=== PATIENT | female | born 1990 | race Native Hawaiian/Other Pacific Islander ===

== ENCOUNTER 2016-07-03 13:26 | Outpatient (CLI) | payer OTHER ==
[2016-07-03 15:58] LABS: PLATELET COUNT 222 K/uL (152-353)
[2016-07-03 18:46] LABS: POTASSIUM 4.5 mmol/L (3.6-5.2); SODIUM 139 mmol/L (136-145)
== END 2016-07-03 20:48 | disposition home or self-care (01) ==
LOC: LAB 13:26
PROVIDERS: Nurse Practitioner Family
DX: Z00.00 Encounter for general adult medical examination without abnormal findings (principal); F41.8 Other specified anxiety disorders; R53.83 Other fatigue; R53.81 Other malaise; M54.89 Other dorsalgia; E78.00 Pure hypercholesterolemia, unspecified
CPT/HCPCS: 80053; 80061; 82306; 83036; 84436; 84443; 85027

== ENCOUNTER 2016-08-27 10:42 | Emergency (ER) | payer OTHER ==
[~2016-08-27] VITALS: Ht 175.3 cm; Wt 108.9 kg
[2016-08-27] MEDS ORDERED: LIPITOR20 MG PO (11:12)
[2016-08-27 12:04] LABS: PLATELET COUNT 238 K/uL (152-353)
[2016-08-27 12:10] LABS: POTASSIUM 3.5 mmol/L (3.6-5.2); SODIUM 135 mmol/L (136-145)
== END 2016-08-27 14:47 | disposition home or self-care (01) ==
LOC: ED 10:42
PROVIDERS: Emergency Medicine
DX: R19.7 Diarrhea, unspecified (principal)
CPT/HCPCS: 36415; 80053; 81000; 81025; 84443; 85027; 87045; 87205; 87328; 87329; 87493; 87798; 87899; 99283

== ENCOUNTER 2017-01-13 13:12 | Emergency (ER) | payer OTHER ==
[~2017-01-13] VITALS: Ht 167.6 cm; Wt 104.3 kg
[~2017-01-13 13:12] MED LIST: LIPITOR20 MG PO
[2017-01-13] MEDS ORDERED: FLONASE AL50 MCG/ACT (13:31)
== END 2017-01-13 16:31 | disposition home or self-care (01) ==
LOC: ED 13:12
DX: M54.32 Sciatica, left side (principal); M54.5 Low back pain
CPT/HCPCS: 96372; 99283; J1885

== ENCOUNTER 2017-10-19 10:12 | Emergency (ER) | payer OTHER ==
[~2017-10-19] VITALS: Ht 175.3 cm; Wt 115.2 kg
[~2017-10-19 10:12] MED LIST changes: +FLONASE AL50 MCG/ACT
[2017-10-19 10:15] VITALS: TEMP 98.4
[2017-10-19 10:58] LABS: PLATELET COUNT 201 K/uL (152-353)
[2017-10-19 11:03] LABS: POTASSIUM 3.3 mmol/L (3.6-5.2); SODIUM 137 mmol/L (136-145)
[2017-10-19 12:23] VITALS: BP 111/71
== END 2017-10-19 12:24 | disposition home or self-care (01) ==
LOC: ED 10:12
PROVIDERS: Emergency Medicine
DX: R06.02 Shortness of breath (principal); Z34.92 Encounter for supervision of normal pregnancy, unspecified, second trimester; J45.998 Other asthma
CPT/HCPCS: 36415; 36600; 80053; 82550; 82553; 82805; 83880; 84484; 85027; 93005; 99283

== ENCOUNTER 2018-08-23 11:25 | Emergency (ER) | payer OTHER ==
[~2018-08-23] VITALS: Ht 175.3 cm; Wt 117.9 kg
[2018-08-23 11:30] VITALS: TEMP 98.1
[2018-08-23 15:00] VITALS: BP 132/74
== END 2018-08-23 15:00 | disposition home or self-care (01) ==
LOC: ED 11:25
PROC: 0HQGXZZ Repair Left Hand Skin, External Approach (ICD-10-PCS; principal; 2018-08-23)
PROC: 0HDQXZZ Extraction of Finger Nail, External Approach (ICD-10-PCS; 2018-08-23)
DX: S61.315A Laceration without foreign body of left ring finger with damage to nail, initial encounter (principal); W26.0XXA Contact with knife, initial encounter; Y92.511 Restaurant or cafe as the place of occurrence of the external cause
CPT/HCPCS: 90715; 99283; J7040

== ENCOUNTER 2018-08-26 14:37 | Emergency (ER) | payer OTHER ==
[~2018-08-26] VITALS: Ht 175.3 cm; Wt 117.9 kg
[2018-08-26 14:50] VITALS: BP 124/56; TEMP 97.7
== END 2018-08-26 15:20 | disposition home or self-care (01) ==
LOC: ED 14:37
DX: Z51.89 Encounter for other specified aftercare (principal)

== ENCOUNTER 2020-03-19 19:58 | Emergency (ER) | payer OTHER ==
[~2020-03-19] VITALS: Ht 175.3 cm; Wt 113.4 kg
[2020-03-19 21:04] LABS: PLATELET COUNT 241 K/uL (152-353)
[2020-03-19 21:19] LABS: POTASSIUM 3.8 mmol/L (3.6-5.2)
[2020-03-20 00:11] VITALS: BP 11112/6; TEMP 98
== END 2020-03-20 00:18 | disposition home or self-care (01) ==
LOC: ED 19:58
PROVIDERS: Emergency Medicine Emergency Medical Services
DX: S16.1XXA Strain of muscle, fascia and tendon at neck level, initial encounter (principal)
CPT/HCPCS: 36415; 80053; 85027; 96360; 96375; 99284; J1200; J1885; J2270; J2550

== ENCOUNTER 2021-04-08 09:49 | Emergency (ER) | payer OTHER ==
[~2021-04-08] VITALS: Ht 175.3 cm; Wt 113.4 kg
[2021-04-08 09:55] VITALS: BP 135/85; TEMP 97.9
== END 2021-04-08 12:03 | disposition home or self-care (01) ==
LOC: ED 09:49
DX: J06.9 Acute upper respiratory infection, unspecified (principal); U07.1 COVID-19; F17.290 Nicotine dependence, other tobacco product, uncomplicated
CPT/HCPCS: 87502; 87635; 87651; 99283; U0003